=== PATIENT | male | born 1940 | race Two or more races ===

== ENCOUNTER 2018-07-06 08:35 | Inpatient (IN) | payer MEDICARE ==
[~2018-07-06] VITALS: Ht 172.7 cm; Wt 68.9 kg
[2018-07-06] MEDS ORDERED: SODIUM CHLORIDE 0.9% 1000ML BAG (SEPSIS BOLUS) IV ONE (09:00)
[2018-07-06] MEDS ORDERED: VANCOMYCIN 1 G PREMIX 200 ML IV ONE (09:00)
[2018-07-06] MEDS ORDERED: PIPERACILLIN/TAZ 3.375G PREMIX 50 ML IV ONE (09:00)
[2018-07-06 09:35] LABS: CHLORIDE 116 mEq/L (98-107); INR 2.5; PROTHROMBIN TIME 24.8 sec (9.6-11.0)
[2018-07-06 09:38] LABS: BASOPHILS % 0.1 % (0.0-2.0); HEMATOCRIT. 35.3 % (42.0-52.0); HEMOGLOBIN. 10.7 g/dL (14.0-18.0); LYMPHOCYTES % 7.7 % (20.0-50.0); MEAN CORPUSCULAR HEMOGLOBIN 27.5 pg (28.0-32.0); MEAN CORPUSCULAR VOLUME 90.6 fL (80.0-94.0); MONOCYTES % 5.1 % (2.0-8.0); NEUTROPHILS % 87.1 % (40.0-76.0); PLATELET 259 x1000/uL (130-400); RED CELL DISTRIBUTION WIDTH 18.9 % (11.6-14.6)
[2018-07-06 09:56] LABS: CREATINE KINASE 2773 IU/L (39-308)
[2018-07-06] MEDS ORDERED: VANCOMYCIN 1 G PREMIX 200 ML IV SCH (10:00)
[2018-07-06] MEDS ORDERED: PIPERACILLIN/TAZ 3.375G PREMIX 50 ML IV SCH (10:00)
[2018-07-06] MEDS ORDERED: DEXTROSE 50% WATER 50ML SYRINGE IV ONE (10:30)
[2018-07-06] MEDS ORDERED: INSULIN REGULAR (HUMULIN R) 300UNITS/3ML IV ONE (10:30)
[2018-07-06] MEDS ORDERED: ASPIRIN 300MG SUPP PR SCH (10:30)
[2018-07-06] MEDS ORDERED: FUROSEMIDE 100MG/10ML VIAL IV SCH (10:30)
[2018-07-06 11:49] LABS: HEPATITIS B SURFACE ANTIGEN NEGATIVE
[2018-07-06 12:18] LABS: HEPATITIS A AB IGM NEGATIVE (NEGATIVE)
[2018-07-06] MEDS ORDERED: DOCUSATE SODIUM 100MG CAPSULE PO PRN (12:30)
[2018-07-06] MEDS ORDERED: HYDROCODONE/ACETAMINOPHEN 5/325MG TABLET PO PRN (12:30)
[2018-07-06] MEDS ORDERED: MAGNESIUM/ALUMINUM HYDROXIDE/SIMETHICONE 30ML UDC PO PRN (12:30)
[2018-07-06] MEDS ORDERED: ONDANSETRON HCL 4MG/2ML INJ IV PRN (12:30)
[2018-07-06] MEDS ORDERED: IPRATROPIUM/ALBUTEROL 0.5-3(2.5)MG/3ML NEB INH SCH (12:30)
[2018-07-06] MEDS ORDERED: DIPHENHYDRAMINE 50MG/ML VIAL IV PRN (12:30)
[2018-07-06] MEDS ORDERED: CLONIDINE 0.1MG TABLET PO PRN (12:30)
[2018-07-06] MEDS ORDERED: ACETAMINOPHEN 650MG SUPP PR PRN (12:30)
[2018-07-06] MEDS ORDERED: ACETAMINOPHEN 325MG TABLET PO PRN (12:30)
[2018-07-06] MEDS ORDERED: IPRATROPIUM/ALBUTEROL 0.5-3(2.5)MG/3ML NEB INH PRN (12:30)
[2018-07-06] MEDS ORDERED: GUAIFENESIN 200MG/10ML SUGAR FREE UDC PO PRN (12:30)
[2018-07-06] MEDS ORDERED: PIPERACILLIN/TAZ 2.25G PREMIX 50 ML IV SCH (12:30)
[2018-07-06] MEDS ORDERED: LORAZEPAM 0.5MG TABLET PO PRN (12:30)
[2018-07-06] MEDS ORDERED: DEXTROSE 5% WATER 1,000 ML IV SCH (13:30)
[2018-07-06] MEDS ORDERED: METHYLPREDNISOLONE SOD SUCC 125 MG/2 ML VIAL IV SCH (13:30)
[2018-07-06] MEDS ORDERED: INSULIN REGULAR (HUMULIN R) 300UNITS/3ML IV SCH (13:45)
[2018-07-06] MEDS ORDERED: DEXTROSE 50% WATER 50ML SYRINGE IV PRN (13:45)
[2018-07-06] MEDS: METHYLPREDNISOLONE SOD SUCC 40 MG/ML VIAL IV SCH ×2 (14:00→23:21)
[2018-07-06 15:44] LABS: BG BASE EXCESS -8.5 mmol/L (-2.0-2.0); BG CARBOXYHEMOGLOBIN 0.3 % (0.5-1.5); BG DEOXYHEMOGLOBIN 22.6 % (0.0-5.0); BG HCO3 ACT 19.2 mmol/L (22.0-26.0); BG METHEMOGLOBIN 0.3 % (0.0-1.5); BG OXYGEN SATURATION 77.3 % (92.0-98.5); BG OXYHEMOGLOBIN 76.8 % (94.0-97.0); BG PCO2 49.8 mmHg (35.0-45.0); BG PH 7.205 (7.350-7.450); BG PO2 53.1 mmHg (75.0-100.0); BG SAMPLE SITE RIGHT RADIAL; BG TOTAL HEMOGLOBIN 10.2 g/dL (12.0-18.0); BG VENT MODE MASK - NRB
[2018-07-06 18:20] LABS: CLARITY URINE CLEAR (CLEAR); COLOR URINE DARK YELLOW (YELLOW); KETONES URINE TRACE (NEGATIVE); LEUKOCYTE ESTERASE URINE NEGATIVE (NEGATIVE); NITRITE URINE NEGATIVE (NEGATIVE); OCCULT BLOOD URINE 2+ (NEGATIVE); PROTEIN URINE 1+ (NEGATIVE); SPECIFIC GRAVITY URINE 1.017 (1.005-1.030); UROBILINOGEN URINE 0.2 E.U./dL (0.2-1.0)
[2018-07-06 18:34] LABS: *AMPHETAMINES SCREEN URINE NEGATIVE (NEGATIVE); *BARBITURATES SCREEN URINE NEGATIVE (NEGATIVE)
[2018-07-06 18:35] LABS: *BENZODIAZEPINES SCREEN URINE NEGATIVE (NEGATIVE); *COCAINE SCREEN URINE NEGATIVE (NEGATIVE); CANNABINOID URINE SCREEN NEGATIVE (NEGATIVE); METHADONE URINE SCREEN NEGATIVE (NEGATIVE); OPIATES URINE SCREEN NEGATIVE (NEGATIVE); PHENCYCLIDINE URINE SCREEN NEGATIVE (NEGATIVE)
[2018-07-06] MEDS ORDERED: SODIUM BICARBONATE 8.4% 1 MEQ/ML 50ML SYR IV NR (21:10)
[2018-07-06 22:30] VITALS: BP 112/62
[2018-07-06] MEDS: ALBUTEROL (0.083%) 2.5MG/3ML NEB HHN SCH (22:30)
[2018-07-06 23:00] VITALS: BP 113/63
[2018-07-06 23:30] VITALS: BP 122/41
[2018-07-06 23:59] LABS: CREATINE KINASE MB FRACTION 87.9 ng/mL (0.5-3.6)
[2018-07-07] VITALS (8 sets, daily range): BP systolic 110–121; BP diastolic 52–67
[2018-07-07] MEDS ORDERED: IPRATROPIUM/ALBUTEROL 0.5-3(2.5)MG/3ML NEB INH SCH
[2018-07-07] MEDS ORDERED: PIPERACILLIN/TAZ 2.25G PREMIX 50 ML IV SCH ×2 (02:00)
[2018-07-07] MEDS ORDERED: VANCOMYCIN 500 MG PREMIX 100 ML IV NR (06:00)
[2018-07-07] MEDS ORDERED: BLOOD SUGAR DIAGNOSTIC STRIP TEST SCH (07:30)
[2018-07-07] MEDS ORDERED: INSULIN LISPRO 100 UNITS/ML SUBCUT SCH (08:00)
[2018-07-07] MEDS ORDERED: ASPIRIN 81MG EC TABLET PO SCH (09:00)
[2018-07-07] MEDS ORDERED: PANTOPRAZOLE SODIUM 40 MG/VIAL IV SCH (09:00)
== END 2018-07-07 07:30 | disposition expired | DRG 871 ==
LOC: ER 08:35 → EDBEDREQ 08:49 → 5EST 10:32 → EDBEDREQ 10:36 → EDBEDREQSVC 10:36 → ENRESERV 20:25
PROVIDERS: ADMIT Internal Medicine; ATTEND Internal Medicine
DX: A41.9 Sepsis, unspecified organism (principal); K72.00 Acute and subacute hepatic failure without coma; N17.0 Acute kidney failure with tubular necrosis; G93.41 Metabolic encephalopathy; M62.82 Rhabdomyolysis; D68.59 Other primary thrombophilia; J44.1 Chronic obstructive pulmonary disease with (acute) exacerbation; N39.0 Urinary tract infection, site not specified; E46 Unspecified protein-calorie malnutrition; E87.2 Acidosis; R65.20 Severe sepsis without septic shock; I11.9 Hypertensive heart disease without heart failure; E78.00 Pure hypercholesterolemia, unspecified; Z66 Do not resuscitate; Z51.5 Encounter for palliative care; J44.9 Chronic obstructive pulmonary disease, unspecified; G90.8 Other disorders of autonomic nervous system; E87.5 Hyperkalemia; Z85.028 Personal history of other malignant neoplasm of stomach; W18.39XA Other fall on same level, initial encounter; Y93.89 Activity, other specified; Y92.092 Bedroom in other non-institutional residence as the place of occurrence of the external cause; Y99.8 Other external cause status; R62.7 Adult failure to thrive; Z68.23 Body mass index [BMI] 23.0-23.9, adult; R74.0 Nonspecific elevation of levels of transaminase and lactic acid dehydrogenase [LDH]; D64.9 Anemia, unspecified; E11.21 Type 2 diabetes mellitus with diabetic nephropathy; E78.5 Hyperlipidemia, unspecified; E86.0 Dehydration; E87.70 Fluid overload, unspecified
CPT/HCPCS: 36415; 36600; 71045; 72170; 73030; 73060; 73080; 76700; 80048; 80305; 82140; 82375; 82550; 82553; 82805; 82962; 83605; 83880; 84484; 86705; 86709; 86803; 87340; 93005; 93880; 93970; 94640; 96374; 96375; 99291; J1815; J1940; J2543; J2920; J2930; J3370; J3490; J7030; J7070; J7611; J7620; A4315